=== PATIENT | female | born 1950 | race Caucasian/White ===

== ENCOUNTER 2020-12-11 20:26 | Emergency (ER) | payer MEDICARE ==
[2020-12-11 21:21] LABS: HEMATOCRIT 40.5 % (37.0-47.0); HEMOGLOBIN 13.9 g/dL (12.5-16.0); MEAN CELL VOLUME 101 fl (78-100); MEAN CORPUSCULAR HEMOGLOBIN 35 pg (27-31); MEAN CORPUSCULAR HGB CONC 34 g/dL (33-37); MEAN PLATELET VOLUME 8.7 fl (7.4-10.4); PLATELET COUNT 264 K/mm3 (130-400); RED BLOOD COUNT 4.03 M/mm3 (4.10-5.30); RED CELL DISTRIBUTION WIDTH 12.7 % (11.5-14.5); WHITE BLOOD COUNT 13.6 K/mm3 (4.8-10.8)
[2020-12-11 21:26] LABS: ALBUMIN 3.8 g/dL (3.4-4.8)
[2020-12-11 21:27] LABS: POTASSIUM 4.5 mmol/L (3.5-5.1)
[2020-12-11 21:28] LABS: CALCIUM 9.3 mg/dL (8.3-10.5)
[2020-12-11 21:29] LABS: TOTAL PROTEIN 6.9 g/dL (6.2-8.1)
[2020-12-11 21:31] LABS: TOTAL BILIRUBIN 0.4 mg/dL (0.2-1.2)
[2020-12-11 21:51] LABS: LYMPHOCYTE 52 % (20-51); MONOCYTE 8 % (3-10); NEUTROPHILS 40 % (42-75)
[2020-12-11 21:52] LABS: D-DIMER 0.24 mg/L FEU (0.15-0.50)
[2020-12-11] MEDS ORDERED: AMLODIPINE BESYL5 MG PO (22:29)
[2020-12-11] MEDS ORDERED: TACROLIMUS1 MG PO (22:29)
[2020-12-11] MEDS ORDERED: ZESTRIL5 M1 PO (22:29)
[2020-12-11] MEDS ORDERED: ROSUVASTATIN CA20 MG PO (22:29)
[2020-12-11] MEDS ORDERED: GLUCOPHAGE PO (22:31)
[2020-12-11] MEDS ORDERED: TRADJENTA5 MG PO (22:31)
[2020-12-11] MEDS ORDERED: BASAGLAR K100 UNIT/1 SQ (22:32)
[2020-12-11] MEDS ORDERED: COMBIVENT RESPI1 SPR IH (23:26)
[2020-12-11] MEDS ORDERED: ZITHROMAX 250M250 MG PO (23:26)
[2020-12-11] MEDS ORDERED: PREDNISONE20 M1 PO (23:26)
[2020-12-11 23:46] VITALS: BP 124/57
== END 2020-12-11 23:46 | disposition home or self-care (01) ==
LOC: ED 20:26
PROVIDERS: Family Medicine
DX: J45.901 Unspecified asthma with (acute) exacerbation (principal); I12.0 Hypertensive chronic kidney disease with stage 5 chronic kidney disease or end stage renal disease; E11.22 Type 2 diabetes mellitus with diabetic chronic kidney disease; N18.6 End stage renal disease; Z94.0 Kidney transplant status; Z20.822 Contact with and (suspected) exposure to COVID-19; Z79.4 Long term (current) use of insulin; Z79.899 Other long term (current) drug therapy; F17.210 Nicotine dependence, cigarettes, uncomplicated
CPT/HCPCS: J2920